=== PATIENT | male | born 1960 | race Caucasian/White ===

== ENCOUNTER 2018-08-30 09:03 | Observation (INO) | payer MEDICAID, OTHER ==
[2018-08-30] MEDS ORDERED: NS 1,000 ML IV ONE ×2 (09:20→10:44)
[2018-08-30] MEDS ORDERED: MECLIZINE HCL 25 MG TAB PO ONE ×2 (09:21→12:47)
[2018-08-30] MEDS ORDERED: LORazepam 2 MG/ML INJ IVP ONE (09:21)
--- NOTE | 2018-08-30 09:25 | EDPHY ---
H & P Stated Complaint: vertigo x 4 days Source: Patient, Family - Personal History Current Tetanus/Diphtheria Vaccine: Yes Current Tetanus Diphtheria and Acellular Pertussis (TDAP): Yes Tetanus Vaccine Date: last 10 years - Medical/Surgical History Hx Asthma: No Hx Chronic Respiratory Disease: No Hx Diabetes: No Hx Cardiac Disease: No Hx Renal Disease: No Hx Cirrhosis: No Hx Alcoholism: No Hx HIV/AIDS: No Hx Splenectomy or Spleen Trauma: No Other PMH: ortho surgeries, depression on meds. - Social History Smoking Status: Former smoker Time Seen by Provider: 08/30/18 09:21 HPI/ROS: HPI: This is a 57-year-old male who presents with Chief Complaint: Room spinning x4 days Location: Head Quality: Room spinning Duration: 4 days Signs and Symptoms: no fever, + nausea, no vomiting, no photophobia, no noise sensitivity, no neck stiffness, no ear pain, no tinnitus, no nasal congestion, no sinus pressure, no weakness, no radiation, no aura Timing: Acute, constant, intermittent episodes Severity: Moderate Context: Patient reports that he has had progressive dizziness for the last 4 days described as the room spinning. He reports that he woke up with lightheadedness. Lightheadedness is described as the room spinning accompanied by nausea. But no symptoms of fever, vomiting, headache, vision changes. He reports that the lightheadedness and dizziness increases with ambulation and moving his head side to side. Denies any runny nose, sinus pressure, rhinorrhea , headache, vision changes, fever. His in him looked up on the Internet different maneuvers to perform for vertigo with no relief of symptoms. No history of vertigo prior to this. Denies hearing loss/tinnitus. Modifying Factors: See above Comment: ROS: A comprehensive 10 system review of systems is otherwise negative aside from elements mentioned in the history of present illness. MEDICAL/SURGICAL/SOCIAL HISTORY: Medical history: Depression Surgical history: Orthopedic surgery Social history: Former smoker. . Family history noncontributory. CONSTITUTIONAL: Well-developed, well-nourished, middle-aged white male, awake and alert, no obvious distress HEENT: Atraumatic and normocephalic, PERRL, EOMI. Bilateral vertical 1 beat nystagmus. Nares patent; no rhinorrhea; no nasal mucosal edema. Tympanic membranes clear. Oropharynx clear, no exudate and moist pink mucosa. Airway patent. No lymphadenopathy. No meningismus. No Carotid bruits. Cardiovascular: Normal S1/S2, regular rate, regular rhythm, without murmur rub or gallop. PULMONARY/CHEST: Symmetrical and nontender. Clear to auscultation bilaterally. Good air movement. No accessory muscle usage. ABDOMEN: Soft, nondistended, nontender, no rebound, no guarding, no peritoneal signs, no masses or organomegaly. No CVAT. EXTREMITIES: 2/2 pulses, strength 5/5, no deformities, no clubbing, no cyanosis or edema. NEUROLOGICAL: no focal neuro deficits. GCS 15. Cranial nerves 2-12 grossly intact. Positive reproducible dizziness with [place]-Hallpike maneuver. Speech clear. SKIN: Warm and dry, no erythema. no rash. Good capillary refill. (Kalpana Kenney) Constitutional: Initial Vital Signs Temperature (C) 36.7 C 08/30/18 09:04 Heart Rate 79 08/30/18 09:04 Respiratory Rate 17 08/30/18 09:04 Blood Pressure 153/74 H 08/30/18 09:04 O2 Sat (%) 96 08/30/18 09:04 O2 Delivery Mode Room Air Allergies/Adverse Reactions: tetracycline [Tetracycline] Allergy (Intermediate, Verified 04/06/11 13:56) Hives Home Medications: Medication Instructions Recorded Sertraline HCl [Zoloft 100mg (*)] 100 mg PO DAILY 08/30/18 Tadalafil [Cialis] 20 mg PO DAILY PRN 08/30/18 Medical Decision Making ED Course/Re-evaluation: Vital signs reviewed and show mildly elevated blood pressure. Physical exam is consistent with BPPV IV access, laboratory studies ordered No neurological deficits. No signs of meningitis, CVA, TIA. Given 1 L normal saline, IV Ativan 1 mg and p.o. Meclizine 25 mg 0930: Creatinine 0.9, glucose 141. No signs of leukocytosis, anemia, platelet dysfunction, electrolyte disturbance. 1045: Reassessed patient who reports mild relief of symptoms. Patient wants to try some more medications and reassessed an hour. Given another L of normal saline, IV promethazine 12.5 mg, IV Valium 5 mg 1120: Reassessed patient who is sleeping soundly. Upon awakening reports mild relief of symptoms. Decision made to obtain MRI brain with and without contrast. Patient will require admission to the hospital for intractable dizziness most likely BPPV. no signs of central vertigo. 1130: ED decision to consult hospitalist for admission after multiple ED interventions tried without resolution of vertigo. Dr. Velázquez spoke with Leann BECKHAM who kindly agrees to admit patient under the care of Dr. Vasques. 1249: Called by Dr. Carlos who reports that MRI of the brain shows no acute intracranial process does show 1.6 cm cyst in the left basal ganglia that appears benign. This patient was seen under the supervision of my secondary supervising physician. I evaluated care for this patient with attending. (Kalpana Kenney) Differential Diagnosis: Dizziness including but not limited to peripheral and central causes of vertigo , orthostatic causes including dehydration, and blood loss. (Kalpana Kenney) Other Provider: PHYSICIAN DOCUMENTATION: The patient was evaluated and managed by the Physician Director Home and myself. I have reviewed the chart and agree with the findings and plan of care as documented. In addition, I examined the patient myself. History confirmed as positional vertigo for the last 4 days. Physical findings as follows: Speech fluent, vital signs reviewed. Still not better after significant attempts at ED therapy. Plan for hospital admission for further treatment, MRI to evaluate further. Pollo for Dr. Jeter, 0212. I am the secondary supervising physician. (Jens Velázquez) - Data Points Laboratory Results: Laboratory Results 08/30/18 09:25 08/30/18 09:25 08/30/18 08/30/18 09:25 09:25 WBC 7.30 10^3/uL 10^3/uL (3.80-9.50) RBC 5.53 10^6/uL 10^6/uL (4.40-6.38) Hgb 17.1 g/dL g/dL (13.7-17.5) Hct 49.6 % % (40.0-51.0) MCV 89.7 fL fL (81.5-99.8) MCH 30.9 pg pg (27.9-34.1) MCHC 34.5 g/dL g/dL (32.4-36.7) RDW 12.0 % % (11.5-15.2) Plt Count 196 10^3/uL 10^3/uL (150-400) MPV 10.2 fL fL (8.7-11.7) Neut % (Auto) 63.4 % % (39.3-74.2) Lymph % (Auto) 27.9 % % (15.0-45.0) [place] % (Auto) 6.2 % % (4.5-13.0) Eos % (Auto) 1.9 % % (0.6-7.6) Baso % (Auto) 0.3 % % (0.3-1.7) Nucleat RBC Rel Count 0.0 % % (0.0-0.2) Absolute Neuts (auto) 4.63 10^3/uL 10^3/uL (1.70-6.50) Absolute Lymphs (auto) 2.04 10^3/uL 10^3/uL (1.00-3.00) Absolute Monos (auto) 0.45 10^3/uL 10^3/uL (0.30-0.80) Absolute Eos (auto) 0.14 10^3/uL 10^3/uL (0.03-0.40) Absolute Basos (auto) 0.02 10^3/uL 10^3/uL (0.02-0.10) Absolute Nucleated RBC 0.00 10^3/uL 10^3/uL (0-0.01) Immature Gran % 0.3 % % (0.0-1.1) Immature Gran # 0.02 10^3/uL 10^3/uL (0.00-0.10) Sodium 138 mEq/L mEq/L (135-145) Potassium 4.0 mEq/L mEq/L (3.5-5.2) Chloride 105 mEq/L mEq/L (97-110) Carbon Dioxide 21 mEq/l L mEq/l (22-31) Anion Gap 12 mEq/L mEq/L (6-14) BUN 13 mg/dL mg/dL (7-23) Creatinine 0.9 mg/dL mg/dL (0.7-1.3) Estimated GFR > 60 Glucose 141 mg/dL H mg/dL (70-100) Calcium 9.4 mg/dL mg/dL (8.5-10.4) Medications Given: Discontinued Medications Diazepam (Valium) 5 mg IVP EDNOW ONE Stop: 08/30/18 10:45 Last Admin: 08/30/18 10:53 Dose: 5 mg Sodium Chloride (Ns) 1,000 mls @ 0 mls/hr IV ONCE ONE; Wide Open PRN Reason: Protocol Stop: 08/30/18 09:21 Last Admin: 08/30/18 09:20 Dose: 1,000 mls Sodium Chloride (Ns) 1,000 mls @ 0 mls/hr IV EDNOW ONE; Wide Open PRN Reason: Protocol Stop: 08/30/18 10:45 Last Admin: 08/30/18 10:55 Dose: 1,000 mls Lorazepam (Ativan Injection) 1 mg IVP EDNOW ONE Stop: 08/30/18 09:22 Last Admin: 08/30/18 09:36 Dose: 1 mg Meclizine HCl (Meclizine Hcl) 25 mg PO EDNOW ONE Stop: 08/30/18 09:22 Last Admin: 08/30/18 09:38 Dose: 25 mg Meclizine HCl (Meclizine Hcl) 25 mg PO ONCE ONE Stop: 08/30/18 12:48 Last Admin: 08/30/18 12:50 Dose: 25 mg Promethazine HCl (Phenergan) 12.5 mg IVP ONCE ONE Stop: 08/30/18 10:45 Last Admin: 08/30/18 10:59 Dose: 12.5 mg Departure - Departure Disposition: [facility] Acute Clinical Impression: Severe dizziness, Vertigo Condition: Fair
[2018-08-30 09:49] LABS: PLATELET COUNT 196 10^3/uL (150-400)
[2018-08-30] MEDS ORDERED: PROMETHAZINE HCL 25 MG/ML INJ IVP ONE (10:44)
[2018-08-30] MEDS ORDERED: DIAZEPAM 5 MG/ML 1 ML SYR IVP ONE (10:44)
[2018-08-30] MEDS ORDERED: GADOBUTROL 10 ML VIAL IVP ONE (11:57)
[2018-08-30] MEDS ORDERED: MECLIZINE HCL 25 MG TAB ONE (12:48)
[2018-08-30] MEDS ORDERED: MECLIZINE HCL 12.5 MG TAB PO PRN ×2 (13:28→22:40)
[2018-08-30] MEDS ORDERED: PROMETHAZINE HCL 25 MG/ML INJ IVP PRN (14:58)
[2018-08-30] MEDS ORDERED: ONDANSETRON 4 MG/2 ML VIAL IVP PRN (14:58)
[2018-08-30] MEDS ORDERED: ONDANSETRON DISINTEGRATING 4 MG TAB PO PRN (14:58)
[2018-08-30] MEDS ORDERED: ACETAMINOPHEN 325 MG TAB PO PRN (14:58)
[2018-08-30] MEDS ORDERED: DIAZEPAM 5 MG/ML 1 ML SYR IVP PRN (15:00)
[2018-08-30] MEDS ORDERED: methylPREDNISolone SOD SUCC 500 MG in D5W 100 ML IV ONE (15:50)
--- NOTE | 2018-08-30 16:18 | GCON ---
[f rep st] CONSULTATION NEUROLOGIC CONSULTATION REFERRING PHYSICIAN: Eliana Abad NP HISTORY: The patient is a 57-year-old who has no prior history of vertigo or any significant neurolo gic problem. Starting Saturday, 5 days ago, he was doing some work and had acute, rather severe verti go, and it was a spinning phenomenon without any associated pain or numbness or weakness. This went on for 15 or so minutes and then he had a few more episodes of shorter duration that day. The follow ing day was less severe, and then it started increasing 2 days ago again with some of the profound ac jackson attacks, but it was lasting several hours. Yesterday, it was present throughout most of the re day, and he and his partner were trying different techniques they read about online including vari ous forms of the Yary maneuver, which were not really helpful and after doing this a couple of times he had vomiting several minutes later. Even though there is a position-dependent exacerbation of th e symptoms, it can come on spontaneously, not exclusively with any particular head movement. He says all movement transiently makes it a little bit worse. No double vision. Denies neck pain or palpit ations or chest pain. No recent illness. He said he did have a little bit of an upset stomach yeste rday. Today, it was as profound as it has been, which led to the feeling that he ought to be evaluat ed, so he came to the emergency room for assessment and has had an MRI, not showing any acute patholo gy that might explain vertigo, and there is a cyst in the left basal ganglia that looks chronic and a bout 1 x 1 cm and probably not related. The rest of his exam in the emergency room was documented as being unremarkable including the neurologic testing, except for some [place]-Hallpike maneuver producing some dizziness. He received some Valium 5 mg in the emergency department and IV fluids as well as getting a dose of l orazepam, meclizine and promethazine. Because of the persistence of symptoms, he was admitted for wo rkup and monitoring and treatment strategies. SOCIAL HISTORY: Former smoker. He works from home. Some history of depression, taking medication. Some orthopedic surgeries. 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 He is . HOME MEDICATIONS: Zoloft and Cialis. ALLERGIES: Listed to tetracycline. PHYSICAL EXAM: VITAL SIGNS: Blood pressure is 122/74, pulse of 47, respirations 16, temperature 36. 4. GENERAL: Well developed, no acute distress. NECK: Supple with no bruits or masses. The trimmer tailer al auditory canal is clear with no vesicular eruptions and clear tympanic membranes with good light r eflex. The patient does not have any rash. No cervical or supraclavicular bruits. CARDIAC: Regula r rate and rhythm. No murmur. NEUROLOGIC: He is awake, alert, attentive. Clear, fluent speech. N ormal cognition. Pupils 2 mm and reactive. Extraocular movements intact except he develops nystagmu s predominantly looking to the right and slightly upward with a fast beating component to the right. Far less evident looking to the left. When he lies supine and turns the head to the right or the le ft, there is not any profound vertigo but transient exacerbation of some of the feeling. It is a mat ter of seconds before it stabilizes as long as he stays still. With the rapid head turning, he is ab le to maintain fixation with intact oculocephalic reflexes. Palate elevates symmetrically. Tongue p rotrudes midline. Normal facial sensation and strength. Hearing is preserved. Motor exam reveals n ormal muscle bulk and tone with 5/5 strength and no abnormal movements. Sensation is preserved for t emperature and light touch. The reflexes 1+ and symmetric. I have reviewed the brain MRI as outlined above. Normal CBC and electrolytes for the most part with mild elevation of glucose. IMPRESSION: Total unit time of 60 minutes. The patient has acute vertigo that was initially episodi c, transient, and then started to become a little more frequent and is now a bit more persistent, alt deven being still keeps it from being prominent. Although there is some exacerbation with movement, definitive diagnosis of a benign paroxysmal positional vertigo syndrome versus vestibular neuronitis is a little hard to make at this stage. It is certainly possible for either to be present. We will have him try a dose of 500 mg IV Solu-Medrol to see if that might help have a calming effect, and he can use antiemetics and anticholinergics as needed as well. Then, we can consider repeating Yary daivs and doing more workup as an outpatient or treatment strategies. Sometimes this syndrome simpl y resolves without a definitive explanation, but we will continue to work with him. /[id number]/MODL
[2018-08-30] MEDS ORDERED: LR 1,000 ML IV SCH (17:00)
--- NOTE | 2018-08-30 17:04 | GHP ---
[f rep st] HISTORY AND PHYSICAL DATE OF ADMISSION: 08/30/2018 CHIEF COMPLAINT: Dizziness for approximately 4 days. HISTORY OF PRESENT ILLNESS: The patient is a 57-year-old gentleman with no significant history, except for orthopedic surgeries and depression, who presented to the emergency room for ongoing dizziness. On Saturday, his right ear had been extremely itchy. He scratched with the tip of his glasses. He thought he inflamed his ear and tried some ibuprofen, but did not think anything of it. He has no ear pain or any type of a tinnitus. His symptoms occurred on Saturday while he was working at his desk. They came on quickly and the room started spinning. The symptoms waxed and waned throughout the day with variation of severity. Then on Saturday, his symptoms were not as severe and he describes as being just slightly dizzy, but nothing quite as bad. Then , he woke up feeling fine and then the symptoms started all over again. He tried doing an Yary maneuver, as well as trying a somersault position to see if this would help. This did not help his symptoms except cause him some bouts of emesis. He also is having some ongoing nausea. What has helped him the most is lying still in a dark room. He denies any fever or chills. No chest pain. No shortness of breath. No changes in his hearing. He had a hearing test performed yesterday. It was noted that he has some hearing loss to high-pitched sounds, but nothing else abnormal. He has had some weight loss , but this has been intentional. He has lost approximately 10 pounds over the last 2 months. During my interview, he is feeling fine, as long as he does not move. He describes the spinning is worse when he looks to the left. PAST MEDICAL HISTORY: 1. Kidney stone. 2. Depression. PAST SURGICAL HISTORY: 1. Right knee arthroscopic surgery in 2010. 2. Left knee surgery. 3. Right shoulder surgery. 4. Right axillary muscle surgery. FAMILY HISTORY: His parents' health is overall fine. His mom has had some complications with lung cancer. SOCIAL HISTORY: He is in a relationship with a woman named Loyda for the past 7 months. She is at his bedside during my interview. He has no children. 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 He has a history of drinking several drinks a day. He has completely abstained from all alcohol for quite some time. ALLERGIES: Tetracycline has caused hives in the past. HOME MEDICATIONS: Cialis 20 mg daily p.r.n. and Zoloft 100 mg daily. REVIEW OF SYSTEMS: A 10-point review of system was performed. Any pertinent positives are in the HPI and past medical history. PHYSICAL EXAM: GENERAL: The patient is a 57-year-old male who appears to be in good health. VITAL SIGNS: Blood pressure is 105/67, heart rate is 48, respiratory rate is 16, O2 sats on room air 95%, temperature is 36.6 Celsius. EYES: Pupils are equal and reactive. He has bilateral vertical nystagmus in both eyes when looking to the right and upward, no conjunctival injection noted. ENT: Normal ears. Hearing is intact. Oral airway is moist. NECK: Trachea is midline. CARDIOVASCULAR: He is bradycardic in a regular rate and rhythm. No murmurs, rubs, or gallops noted. CHEST: Lungs normal respiratory effort. Clear without wheezing, rales, rhonchi. ABDOMEN: Soft, nontender. SKIN: No rashes, ulcer. MUSCULOSKELETAL: Did not evaluate him ambulating due to the nystagmus. PSYCHIATRIC: He is alert and oriented. Normal mood, affect. Normal judgment, insight, and normal memory. DATA: Reviewed. A CBC shows white blood cell count of 7.3, hemoglobin of 17.1 , hematocrit 49.6, platelet count of 196. Chemistry sodium is 138, potassium 4 , chloride of 105, CO2 of 21, BUN 13, creatinine 0.9, glucose of 141. Brain MRI was performed with no acute findings. He has 1.6 cm cyst in the inferior left basal ganglia which could represent enlarged perivascular space or less likely a neural epithelial cyst or other etiology. He has tiny nonspecific white matter FLAIR hyperintensities likely related to chronic microvascular ischemic gliosis. I reviewed the patient's care with Dr. Jens Velázquez, emergency room physician. ASSESSMENT/PLAN: 1. Vertigo. I suspect he may have vestibular neuritis. I have spoken with Dr. Lake Christianson, with Neurology. He will do a trial of steroids to see if this helps. In addition, will treat him with meclizine, antiemetics, and Valium to see if this improves his symptoms. Will ask Physical Therapy and Occupational Therapy to further evaluate him in the morning. 2. Hyperglycemia. Will check A1c. This could be stress induced. 3. A 1.6 cm cyst in the inferior left basal ganglia. This should be monitored in the outpatient setting. Further evaluated by Neurology. 4. Deep venous thrombosis prophylaxis. Low risk. 5. Length of stay. I suspect he will require less than a two-midnight stay, which will make him observation status. This can be reevaluated in the a.m. /[id number]/MODL MTDD
[2018-08-30] MEDS ORDERED: ZOLPIDEM TARTRATE 5 MG TAB PO PRN (22:33)
[2018-08-31 08:17] VITALS: BP 126/71
--- NOTE | 2018-08-31 08:38 | NEUROPROG ---
Assessment: Total unit time of 15 min. The patient has vertigo with positional aspects but also features that suggest perhaps an acute vestibular neuronitis. I do not think he requires further hospitalization but needs to have outpatient vestibular therapy set up and we can help him significantly than refer him to Dr. Jeannine Valiente at the [facility] for more definitive diagnosis and treatment approaches. Subjective: The patient says that he does not feel much better this morning after getting 500 mg of IV Solu-Medrol yesterday. He still has the feeling of dizziness worse with movement. Objective: Vital Signs Temp Pulse Resp BP Pulse Ox 36.6 C 53 L 18 126/71 H 95 08/31/18 08:00 08/31/18 08:00 08/31/18 08:00 08/31/18 08:00 08/31/18 08:00 08/30/18 08/31/18 09/01/18 05:59 05:59 05:59 Intake Total 3700 Balance 3700 Allergies/Adverse Reactions: tetracycline [Tetracycline] Allergy (Intermediate, Verified 04/06/11 13:56) Juliaes
[2018-08-31] MEDS ORDERED: SERTRALINE HCL 100 MG TAB PO SCH (09:00)
--- NOTE | 2018-08-31 09:56 | ASMTLACE ---
RANJAN Length of stay for Answers: 1 day current admission Acuity / Level of Answers: No Care: Did the patient have an inpatient admission? Comorbidities - select Answers: Other Notes: Ortho surgery, depressi on all that apply # of Emergency department Answers: 1-2 visits in the last 6 months Score: 3 Date Signed: 08/31/2018 09:55 AM Electronically Signed By:Chetna Peoples
--- NOTE | 2018-08-31 09:59 | ASMTCMCOM ---
CM Note CM Note Notes: Met with Pt and chart reviewed for discharge. Rubén is a 57yr old admitted with ongoing vertigo. Pt has a Hx of Kidney stone, orthopedic surgeries and depression. Lives here in [place] with his life partner Loyda. Pt will likely discharge home independently. CM available for needs. PLAN: Home Independently. Date Signed: 08/31/2018 09:58 AM Electronically Signed By:Chetna Peoples
--- NOTE | 2018-08-31 14:26 | GDS ---
[f rep st] DISCHARGE SUMMARY DISCHARGE DIAGNOSES: 1. Vertigo, likely secondary to benign paroxysmal positional vertigo versus vestibular neuritis. 2. Inferior left basal ganglia cyst. This is an incidental finding on CT and will warrant outpatien t followup. LINK TRAINER MAINTENANCE WORKER: Dr. Lake Christianson, Neurology. IMAGING STUDIES,: Brain MRI August 30, 2018, showed no acute findings. A 1.6 cm cyst in the inferior left basal ganglia could represent an enlarged perivascular space or less likely a neuroepithelial c yst. HISTORY OF DETAILS: Please see history and physical dated August 30, 2018. In brief, The patient is a 57-year-old male with a history of depression who presented to the emergency department with vertig o for the past 4 days. This has been associated with vomiting and difficulty ambulating. He was adm itted to the hospital for further evaluation. HOSPITAL COURSE: Patient was admitted to the Med/Surg unit. A neurology consult was obtained. Some consideration was given to vestibular neuritis and he received 500 mg of IV Solu-Medrol. This reall y did not improve his symptoms and steroids were not continued at the time of discharge. He was give n supportive care with meclizine, antiemetics, and Valium. A brain MRI was performed which showed no acute changes. There was noted to be a 1.6 cm cyst in the inferior left basal ganglia. Per neurolo gy consultation, this is thought to be chronic and probably not related to his acute vertigo, though I do recommend he have outpatient followup with Neurology for this. He was evaluated by our therapy services team. He did try some Yary's maneuvers at home which provoked emesis. On the day of disch arge, his symptoms are slightly improved. He is able to ambulate independently, albeit slowly. He i s referred to the [facility] to see Dr. Jeannine Valiente for further outpat ient evaluation. DISPOSITION: Patient is discharged home in stable condition. FOLLOWUP: 1. Dr. Jeannine Valiente at the [facility]. 2. Dr. Ene Santana, primary care. DISCHARGE MEDICATIONS: Please see [facility] for completed outpatient medication list. New medications on discharge include meclizine 25 mg p.o. q.6 hours p.r.n., #30, no refills; Valium 5 mg p.o. b.i.d. p.r.n., #10, no refills. He is instructed to not drive if he takes Valium or while he is having ongoing vertigo symptoms and esther barnett agrees to this. /[id number]/MODL
== END 2018-08-31 11:04 | disposition home or self-care (01) ==
LOC: F3N 13:10
PROVIDERS: ADMIT Internal Medicine; ATTEND Hospitalist
DX: R42 Dizziness and giddiness (principal); G93.0 Cerebral cysts; R73.9 Hyperglycemia, unspecified; F32.9 Major depressive disorder, single episode, unspecified; Z87.891 Personal history of nicotine dependence; Z87.442 Personal history of urinary calculi
CPT/HCPCS: 70553; 97161; 97165; G0378; 96374; A9585; J2060; J2550; J2930; J3360